=== PATIENT | female | born 1985 | race Caucasian/White ===

== ENCOUNTER 2021-05-10 13:23 | Emergency (ER) | payer OTHER ==
[~2021-05-10] VITALS: Ht 165.1 cm; Wt 93.0 kg
[2021-05-10 14:08] VITALS: BP 135/79
[2021-05-10] MEDS ORDERED: BACITRACIN OINT 500 UNITS/GM PKT TP ONE ×2 (14:10→16:07)
[2021-05-10] MEDS ORDERED: LIDOCAINE MPF 1% 10 MG/ML VIAL INJ ONE ×3 (14:10→15:10)
--- NOTE | 2021-05-10 14:15 | NUR ---
Pt to wait in lobby
[2021-05-10] MEDS ORDERED: BACI1PAC6 TP (15:57)
[2021-05-10] MEDS ORDERED: IBUP-2213 PO (15:57)
[2021-05-10 16:23] VITALS: BP 130/74
--- NOTE | 2021-05-10 16:24 | NUR ---
Patient discharged with v/s stable. Written and verbal after care instructions given FOR LACERATION CARE AFTER and explained. Patient alert, oriented and verbalized understanding of instructions. Ambulatory with steady gait. All questions addressed prior to discharge. ID band removed. Patient advised to follow up with PMD. Rx of BACITRACIN AND MORTRIN given. Patient educated on indication of medication including possible reaction and side effects. Opportunity to ask questions provided and answered.
== END 2021-05-10 16:23 | disposition home or self-care (01) ==
LOC: MED 13:23
DX: S61.211A Laceration without foreign body of left index finger without damage to nail, initial encounter (principal); Z79.899 Other long term (current) drug therapy; W22.8XXA Striking against or struck by other objects, initial encounter; Y93.89 Activity, other specified; Y92.89 Other specified places as the place of occurrence of the external cause; Y99.8 Other external cause status
CPT/HCPCS: 12001; 99282; J2001

== ENCOUNTER 2021-05-27 08:17 | Emergency (ER) | payer OTHER ==
[~2021-05-27] VITALS: Ht 162.6 cm; Wt 92.1 kg
[~2021-05-27 08:17] MED LIST: BACI1PAC6 TP; IBUP-2213 PO
[2021-05-27 08:26] VITALS: BP 144/88
[2021-05-27 09:29] VITALS: BP 135/75
--- NOTE | 2021-05-27 09:30 | NUR ---
Patient discharged with v/s stable. Written and verbal after care instructions given FOR SUTURE REMOVAL and explained. Patient verbalized understanding. Ambulatory with steady gait. All questions addressed prior to discharge. Advised to follow up with PMD.
== END 2021-05-27 09:30 | disposition home or self-care (01) ==
LOC: MED 08:17
DX: S61.211D Laceration without foreign body of left index finger without damage to nail, subsequent encounter (principal); Z79.899 Other long term (current) drug therapy; X58.XXXD Exposure to other specified factors, subsequent encounter
CPT/HCPCS: 99281